=== PATIENT | female | born 1935 | race Two or more races ===

== ENCOUNTER 2017-01-14 00:12 | Emergency (ER) | payer MEDICARE, MEDICAID ==
[~2017-01-14] VITALS: Ht 154.9 cm; Wt 64.9 kg
[~2017-01-14 00:12] MED LIST: ALPR0.5T8 PO; AMLO5TAB2 PO; CITALOPRAM PO; CLOP75TA15 PO; LEVAQUIN PO; LOVA20TA2 PO; MESA400T PO; METO50TA3 PO; NORT25CA PO; TRIA50CA PO; TYLENOL W/CODEINE PO; [UNRECOGNIZED DRUG - OTHER] PO
[2017-01-14] MEDS ORDERED: IV NORMAL SALINE 1000 ML BAG IV ONE (00:45)
[2017-01-14] MEDS ORDERED: ONDANSETRON 4 MG/2 ML VIAL IV ONE (00:45)
[2017-01-14] MEDS ORDERED: HYDROMORPHONE 1 MG/1 ML DISP.SYRIN IV ONE (00:45)
[2017-01-14 01:01] LABS: CARBON DIOXIDE 28 mmol/L (21-32); CHLORIDE 102 mmol/L (98-107); CREATININE 1.4 mg/dL (0.6-1.3); GLUCOSE 145 mg/dL (74-106); POTASSIUM 3.4 mmol/L (3.5-5.1); UREA NITROGEN, BLOOD 43 mg/dL (7-18)
[2017-01-14 01:02] LABS: BASOPHILS # (AUTO) 0.1 K/uL (0.0-8.0); BASOPHILS % (AUTO) 0.5 % (0.0-2.0); EOSINOPHILS # (AUTO) 0.3 K/uL (0.0-0.7); EOSINOPHILS % (AUTO) 2.4 % (0.0-7.0); HEMATOCRIT 41.8 % (37-47); HEMOGLOBIN 13.9 G/DL (12.0-16.0); LYMPHOCYTES # (AUTO) 2.5 K/UL (0.8-4.8); LYMPHOCYTES % (AUTO) 22.7 % (20.5-51.5); MEAN CORPUSCULAR HEMOGLOBIN 28.1 UUG (27.0-31.0); MEAN CORPUSCULAR HGB CONC 33 g/dL (32.0-37.0); MEAN CORPUSCULAR VOLUME 84.8 FL (81.0-99.0); MONOCYTES % (AUTO) 8.7 % (0.0-11.0); NEUTROPHILS # (AUTO) 7.3 K/UL (1.8-8.9); NEUTROPHILS % (AUTO) 65.7 % (38.5-71.5); PLATELET COUNT (AUTO) 277 K/UL (150-450); RED BLOOD CELL COUNT(AUTO) 4.93 MIL/UL (4.2-5.4); WHITE BLOOD COUNT (AUTO) 11.2 K/UL (4.0-11.2)
[2017-01-14 01:06] LABS: ALANINE AMINOTRANSFERASE 25 U/L (14-59); ALKALINE PHOSPHATASE 69 U/L (50-136); ASPARTATE AMINOTRANSFERASE 10 U/L (15-37); BILIRUBIN,DIRECT 0.1 mg/dL (0.0-0.2); BILIRUBIN,TOTAL 0.4 mg/dL (0.2-1.0); LIPASE 155 U/L (73-393); TOTAL PROTEIN, SERUM 7.5 g/dL (6.4-8.2)
[2017-01-14] MEDS ORDERED: ONDANSETRON 4 MG/2 ML VIAL ONE (01:19)
[2017-01-14] MEDS ORDERED: HYDROMORPHONE 1 MG/1 ML DISP.SYRIN ONE (01:19)
[2017-01-14] MEDS ORDERED: IOHEXOL 300MG/ML 100 ML INFUS..BTL ONE (02:35)
[2017-01-14] MEDS ORDERED: IV NORMAL SALINE 250 ML IV ONE (02:35)
--- NOTE | 2017-01-14 02:57 | NUR ---
PATIENT RETURNED FROM CT SCAN.
--- NOTE | 2017-01-14 03:32 | NUR ---
Patient discharged to home in stable conditon. Written and verbal after care instructions given. Patient verbalizes understanding of instructions.
[2017-01-14 03:34] VITALS: BP 104/70
== END 2017-01-14 03:34 | disposition home or self-care (01) ==
LOC: ER 00:17
DX: G89.29 Other chronic pain (principal); M54.5 Low back pain; R10.9 Unspecified abdominal pain; E86.0 Dehydration; E11.9 Type 2 diabetes mellitus without complications; Z90.49 Acquired absence of other specified parts of digestive tract; I10 Essential (primary) hypertension; Z95.5 Presence of coronary angioplasty implant and graft; I25.10 Atherosclerotic heart disease of native coronary artery without angina pectoris
CPT/HCPCS: 36415; 83690; 85025; 85730; 93005; A4663; J1170; J2405; J7030; J7050; Q9967